=== PATIENT | female | born 1975 | race Hispanic/Latino ===

== ENCOUNTER 2023-09-16 20:52 | Emergency (ER) | payer MEDICAID ==
[2023-09-16 20:56] VITALS: BP 140/80; PULSE 90; RESP 18
[2023-09-16] MEDS ORDERED: NAPR-1180 PO (21:44)
[2023-09-16] MEDS ORDERED: KETOROLAC 30MG VIAL (30MG/ML) IM ONE (22:00)
== END 2023-09-16 21:58 | disposition home or self-care (01) ==
LOC: EDH 20:52
DX: S16.1XXA Strain of muscle, fascia and tendon at neck level, initial encounter (principal); F32.A Depression, unspecified; X58.XXXA Exposure to other specified factors, initial encounter; Y93.89 Activity, other specified; Y92.89 Other specified places as the place of occurrence of the external cause; Y99.8 Other external cause status
CPT/HCPCS: 99283; 96372; J1885